=== PATIENT | male | born 1970 | race Asian ===

== ENCOUNTER 2016-10-08 08:20 | Emergency (ER) | payer OTHER ==
[~2016-10-08] VITALS: Ht 185.4 cm; Wt 86.2 kg
== END 2016-10-08 11:10 | disposition home or self-care (01) ==
LOC: ED 08:20
DX: M47.896 Other spondylosis, lumbar region (principal); M54.5 Low back pain
CPT/HCPCS: 81000; 99283

== ENCOUNTER 2019-03-03 09:23 | Outpatient (CLI) | payer OTHER | END 2019-03-03 23:44 | disposition home or self-care (01) | LOC: MRI 09:23 | DX: M54.12 Radiculopathy, cervical region (principal) ==

== ENCOUNTER 2020-10-16 11:29 | Outpatient (CLI) | payer OTHER | END 2020-10-16 21:11 | disposition home or self-care (01) | LOC: INF 11:29 | PROVIDERS: ATTEND Internal Medicine | DX: Z23 Encounter for immunization (principal) | CPT/HCPCS: 96372 ==

== ENCOUNTER 2020-11-12 11:09 | Outpatient (CLI) | payer OTHER | END 2020-11-12 21:14 | disposition home or self-care (01) | LOC: INF 11:09 | PROVIDERS: ATTEND Internal Medicine | DX: Z23 Encounter for immunization (principal) | CPT/HCPCS: 96372 ==

== ENCOUNTER 2021-02-09 08:30 | Emergency (ER) | payer OTHER | END 2021-02-09 10:25 | disposition home or self-care (01) | LOC: ED 08:30 | DX: S13.8XXA Sprain of joints and ligaments of other parts of neck, initial encounter (principal); V43.62XA Car passenger injured in collision with other type car in traffic accident, initial encounter; Y93.89 Activity, other specified; Y92.89 Other specified places as the place of occurrence of the external cause; S29.011A Strain of muscle and tendon of front wall of thorax, initial encounter | CPT/HCPCS: 96372; 99283 ==

== ENCOUNTER 2021-07-11 10:53 | Emergency (ER) | payer OTHER ==
[~2021-07-11] VITALS: Ht 182.9 cm; Wt 83.9 kg
[2021-07-11 11:10] VITALS: TEMP 97.3
[2021-07-11 11:55] VITALS: BP 133/82
== END 2021-07-11 11:56 | disposition home or self-care (01) ==
LOC: ED 10:53
DX: H00.011 Hordeolum externum right upper eyelid (principal)
CPT/HCPCS: 99283

== ENCOUNTER 2022-09-10 15:28 | Outpatient (CLI) | payer OTHER ==
[2022-09-10 15:48] LABS: PLATELET COUNT 253 K/uL (142-355)
[2022-09-10 16:03] LABS: POTASSIUM 3.4 mmol/L (3.6-5.2)
== END 2022-09-10 19:54 | disposition home or self-care (01) ==
LOC: LABW 15:28
PROVIDERS: ATTEND Nurse Practitioner
DX: R53.83 Other fatigue (principal)
CPT/HCPCS: 36415; 80053; 80061; 82306; 82607; 84402; 84403; 84439; 84443; 85027